=== PATIENT | female | born 1965 | race Caucasian/White ===

== ENCOUNTER 2016-11-11 17:44 | Emergency (ER) | payer OTHER ==
--- OUTSIDE RECORDS SUMMARY | 2016-11-11 18:31 | XMS REPORT | Continuity of Care Document ---
:1965 Author Organization [facility] ([facility]) Address [place] [address] Phone [phone] Care Team Providers Name Role Phone Provider, No-Primary Care Primary Care Provider Unavailable Source Comments This disclosure is being made pursuant to the Care Everywhere program, applicable federal and state laws, and may not contain all informaitonavailable regarding this patient.[facility] ([facility]) Active Allergies and Adverse Reactions No Active Allergies Current Medications Not on file Active Problems Not on file Social History Tobacco Use Types Packs/Day Years Used Date Never Assessed Last Filed Vital Signs Vital Sign Reading Time Taken Blood Pressure 149/83 09/29/2005 11:16 AM MANAGER SURGERY Pulse 80 09/29/2005 11:16 AM MANAGER SURGERY Temperature - - Respiratory Rate - - Height 1.655 m (5' 5.15") 09/29/2005 11:16 AM MANAGER SURGERY Weight 73.097 kg (161 lb 2.4 oz) 09/29/2005 11:16 AM MANAGER SURGERY Body Mass Index 26.69 09/29/2005 11:16 AM MANAGER SURGERY Oxygen Saturation - - Plan of Care Health Maintenance Due Date Last Done Comments Hepatitis B Vaccine (1 of 3 - Primary Series) 1965 Tdap Vaccine 1978 Lipid Disorder Screening 1985 MMR Vaccine 1985 Td Vaccine 1985 Cervical Cancer Screening 03/26/2004 03/26/2001 Mammogram 2007 Influenza Vaccine: Seasonal (#1) 03/07/2016 Results from Last 3 Months Not on file
[2016-11-11] MEDS ORDERED: KETOROLAC TROMETHAMINE 60 MG/2 ML VIAL IM ONE ×2 (18:33→18:54)
--- NOTE | 2016-11-11 19:05 | ERNOTE ---
Lower Extremity HPI - Narrative Date of Service: 11/11/16 - General Lower Extremities Pain: knee: right Time Seen by Provider: 11/11/16 18:20 Source: patient Exam Limitations: no limitations - Immun/Allergies/Home Medications Immunizations: IMMUNIZATION HX Immunizations Up to Date Yes History of Influenza Vaccine Yes Hx Pneumococcal Vaccination No Allergies/Adverse Reactions: Allergies Allergy/AdvReac Type Severity Reaction Status Date / Time hydrocodone bitartrate AdvReac Mild STOMACH Verified 03/25/16 10:00 [From Vicodin] UPSET Home Medications: HOME MEDICATIONS Acetaminophen [Pain Relief Extra Strength] 1,000 mg PO Q4H PRN 03/03/16 [Last Taken Unknown] Cyclobenzaprine HCl 5 mg PO TID PRN 03/03/16 [Last Taken Unknown] FLUoxetine HCL [Prozac] 20 mg PO HS 03/03/16 [Last Taken 12/06/15] oxyCODONE HCL/ACETAMINOPHEN [Percocet 5 MG/325 MG] 2 tab PO Q4H PRN #30 tablet 03/25/16 [Last Taken Unknown] oxyCODONE HCL/ACETAMINOPHEN [Percocet 5 MG/325 MG] 1 - 2 tab PO Q4H PRN #30 tablet 04/15/16 [Last Taken 04/29/16 20:00] Naproxen [Naprosyn] 500 mg PO BID PRN #20 tablet 04/29/16 [Last Taken Unknown] Gabapentin 300 mg PO QID #30 capsule 05/01/16 [Last Taken Unknown] Hydromorphone HCl [Dilaudid] 2 mg PO QID #30 tablet 05/01/16 [Last Taken Unknown ] - History of Present Illness Narrative: 51-year-old female presenting to the emergency room for right knee pain 3 days. Patient states that she was at work and loaded A Mateo and Dr. Latoya rivero her right knee started to hurt. Date (Duration): 11/11/16 Occurred: yesterday Location of Incident: work Method of Injury: Reports: unknown Modifying Factors - (Improves): Reports: immobilization Modifying Factors - (Worsens): Reports: movement Other Injuries: Reports: none Review of Systems - Review of Systems Constitutional: Present: no symptoms reported EYE: Present: no symptoms reported ENT: Present: no symptoms reported Respiratory: Present: no symptoms reported Cardiology: Present: no symptoms reported Gastrointestinal/Abdominal: Present: no symptoms reported Genitourinary: Present: no symptoms reported Musculoskeletal: Present: See HPI, joint pain, joint swelling Skin: Present: no symptoms reported Neurological: Present: no symptoms reported Endocrine: Present: no symptoms reported Hematologic/Lymphatic: Present: no symptoms reported Psych: Present: no symptoms reported All Other Systems: All systems neg except as marked - Patient's Past Medical History Patient History - Medical: Anemia, Anxiety, Depression, Migraines Patient History - Cardiac/Respiratory: No pertinent hx Patient History - Cancer: No Hx of Cancer Patient History - Surgical Procedures: D & C, Other Patient History - Other: None LMP (females 10-50): Menopausal - Family History Mother Family History - Medical: Diabetes Type 2, Depression Family History - Cardiac/Respiratory: Hypertension Father Family History - Medical: No pertinent hx Family History - Cardiac/Respiratory: Hypertension Grandfather-Maternal Family History - Medical: No pertinent hx Family History - Cardiac/Respiratory: No pertinent hx Sister Family History - Medical: Diabetes Type 2 Family History - Cardiac/Respiratory: Asthma - Social History Living Situations: home Abuse History: No History of abuse Psych History: Hx of Anxiety, Hx of Depression Smoking Status: Current every day smoker Have you smoked in the past 12 months: Yes Patient requests Smoking Cessation Consult: No Initiate information on Smoking Cessation: No Alcohol Use: none Drug Use: none - Immunizations Immunizations Up to Date: Yes Hx Pneumococcal Vaccination: No History of Influenza Vaccine: Yes Physical Exam - Physical Exam General Appearance: Present: wd/wn, alert, no apparent distress Eye Exam: Normal inspection: bilateral Ears, Nose, Throat: Present: normal ENT inspection Neck: Present: normal inspection Respiratory: Present: no respiratory distress Cardiovascular/Chest: Present: regular rate, rhythm Gastrointestinal/Abdominal: Present: normal bowel sounds, nontender Back Exam: Present: normal inspection Extremity Exam: Present: normal except -, joint swelling - to right knee Neurological Exam: Present: alert, oriented, normal mood/affect Skin Exam: Present: normal color Lymphatic Exam: Present: no adenopathy ED Progress - Vital Signs Patient's Vital Signs:: I have reviewed the patient's vital signs. Vital Signs: Vital Signs 11/11/16 18:07 Temperature 37.7 C H Pulse Rate 76 Respiratory 18 Rate Blood Pressure 153/95 O2 Sat by Pulse 95 Oximetry - X-Ray X-Ray #1 X-Ray: knee Interpretation: Reviewed by me X-ray Comments: Findings: No acute fracture or dislocation. Alignment is anatomic. Mineralization is normal. Mild tricompartmental degenerative changes, greatest at the medial and anterior compartments. No destructive osseous lesions. No large joint effusion. Soft tissues are unremarkable. Impression: No acute osseous findings. Additional findings and comments are as above. Electronically signed by Rogelio Mohamud D.O.. - Progress/Reassessment Chief Complaint: Lower Extremity Pain/ Injury Progress:: Improved Departure Clinical Impression: Knee pain, acute Qualifiers: Laterality: right Qualified Code(s): M25.561 - Pain in right knee - Departure Disposition: Home Follow Up Needed Condition: Stable Instructions: Knee Pain, Knee Sprain, [id number] Additional Instructions: Continue to go home and rest tonight. Take [id number] pain medicines as needed for pain. Follow-up with your primary care physician on Monday if pain persists. Return to the emergency room if pain is not able to be controlled by [id number] pain medication or new symptoms arise. Referrals: Alice Celis, FADI [Primary Care Provider] -
[2016-11-11 21:30] VITALS: BP 157/91
== END 2016-11-11 20:38 | disposition home or self-care (01) ==
LOC: ER 17:44
DX: M25.561 Pain in right knee (principal); F17.210 Nicotine dependence, cigarettes, uncomplicated

== ENCOUNTER 2016-11-25 20:36 | Emergency (ER) | payer OTHER ==
--- NOTE | 2016-11-25 21:42 | ERNOTE ---
Lower Extremity HPI - General Lower Extremities Pain: knee: right Time Seen by Provider: 11/25/16 21:28 Source: patient Exam Limitations: no limitations - Immun/Allergies/Home Medications Immunizations: IMMUNIZATION HX Immunizations Up to Date Yes History of Influenza Vaccine No Hx Pneumococcal Vaccination No Allergies/Adverse Reactions: Allergies Allergy/AdvReac Type Severity Reaction Status Date / Time hydrocodone bitartrate AdvReac Mild STOMACH Verified 11/25/16 20:49 [From Vicodin] UPSET Home Medications: HOME MEDICATIONS Acetaminophen [Pain Relief Extra Strength] 1,000 mg PO Q4H PRN 03/03/16 [Last Taken Unknown] Cyclobenzaprine HCl 5 mg PO TID PRN 03/03/16 [Last Taken Unknown] Meloxicam [Mobic] 15 mg PO DAILY 11/25/16 [Last Taken Unknown] - History of Present Illness Narrative: Pt was walking down a ramp and felt a 'POP'. Pt was seen in the ED for pain in this knee 2 days ago and x-rays showed only degenerative changes. Occurred: just prior to arrival Location of Incident: home Method of Injury: Reports: unknown Modifying Factors - (Improves): Reports: immobilization Modifying Factors - (Worsens): Reports: movement Associated Symptoms: Reports: unable to bear weight, popping sensation Other Injuries: Reports: none Prior Treament: Reports: recently seen, treated by physician Review of Systems - Review of Systems Constitutional: Absent: recent illness, fever EYE: Present: no symptoms reported ENT: Present: no symptoms reported Respiratory: Present: no symptoms reported Cardiology: Present: no symptoms reported Gastrointestinal/Abdominal: Present: no symptoms reported Genitourinary: Present: no symptoms reported Musculoskeletal: Present: joint pain - with recent injury of this same joint, joint swelling Skin: Absent: rash, change in color Neurological: Absent: numbness, tingling Endocrine: Present: no symptoms reported Hematologic/Lymphatic: Present: no symptoms reported Psych: Present: no symptoms reported - Patient's Past Medical History Patient History - Medical: Anemia, Anxiety, Depression, Migraines Patient History - Cardiac/Respiratory: No pertinent hx Patient History - Cancer: No Hx of Cancer Patient History - Surgical Procedures: D & C, Other Patient History - Other: None LMP (females 10-50): Menopausal - Family History Mother Family History - Medical: Diabetes Type 2, Depression Family History - Cardiac/Respiratory: Hypertension Father Family History - Medical: No pertinent hx Family History - Cardiac/Respiratory: Hypertension Grandfather-Maternal Family History - Medical: No pertinent hx Family History - Cardiac/Respiratory: No pertinent hx Sister Family History - Medical: Diabetes Type 2 Family History - Cardiac/Respiratory: Asthma - Social History Living Situations: home Abuse History: No History of abuse Psych History: Hx of Anxiety, Hx of Depression Smoking Status: Current every day smoker Alcohol Use: none Drug Use: none - Immunizations Immunizations Up to Date: Yes Hx Pneumococcal Vaccination: No History of Influenza Vaccine: No Physical Exam - Physical Exam General Appearance: Present: wd/wn, alert, mild distress Neck: Present: normal inspection Respiratory: Present: no respiratory distress Extremity Exam: Present: decreased range of motion - of right knee, increased pain with flexion past 120 degrees. No effusion noted, no crepitance noted. No evidence for meniscus tear but exam limited by pain. Neurological Exam: Present: alert, oriented, normal mood/affect Skin Exam: Present: normal color, warm/dry ED Progress - Vital Signs Vital Signs: Vital Signs 11/25/16 20:45 Temperature 37.0 C Pulse Rate 92 Respiratory 16 Rate Blood Pressure 144/85 O2 Sat by Pulse 98 Oximetry - Progress/Reassessment Chief Complaint: Lower Extremity Pain/ Injury Progress:: Unchanged Progress Note-Subjective: Discussed possible internal derangement such as a degenerative meniscus tear. Encouraged her to be careful with the joint and follow up with her PCP or orthopedics if not improving in 3- 5 days. Departure Clinical Impression: Knee pain, acute Qualifiers: Laterality: right Qualified Code(s): M25.561 - Pain in right knee - Departure Disposition: Home Follow Up Needed Condition: Good Instructions: Meniscus Tear, How to Use a Knee Brace Additional Instructions: See your regular doctor or make an appointment with Orthopedics. keep the brace on except for bathing. Referrals: Alice Celis FNP [Primary Care Provider] -
--- OUTSIDE RECORDS SUMMARY | 2016-11-25 21:54 | XMS REPORT | Continuity of Care Document ---
:1965 Author Organization [facility] ([facility]) Address [place] [address] Phone [phone] Care Team Providers Name Role Phone Provider, No-Primary Care Primary Care Provider Unavailable Source Comments This disclosure is being made pursuant to the Care Everywhere program, applicable federal and state laws, and may not contain all informaitonavailable regarding this patient.[facility] ([facility]) Active Allergies and Adverse Reactions No Active Allergies Current Medications Not on file Active Problems Not on file Social History Tobacco Use Types Packs/Day Years Used Date Never Assessed Last Filed Vital Signs Vital Sign Reading Time Taken Blood Pressure 149/83 09/29/2005 11:16 AM TOY STUFFER Pulse 80 09/29/2005 11:16 AM TOY STUFFER Temperature - - Respiratory Rate - - Height 1.655 m (5' 5.15") 09/29/2005 11:16 AM TOY STUFFER Weight 73.097 kg (161 lb 2.4 oz) 09/29/2005 11:16 AM TOY STUFFER Body Mass Index 26.69 09/29/2005 11:16 AM TOY STUFFER Oxygen Saturation - - Plan of Care [...]
[2016-11-26 00:15] VITALS: BP 115/75
== END 2016-11-25 23:18 | disposition home or self-care (01) ==
LOC: ER 20:36
DX: M25.561 Pain in right knee (principal); F17.200 Nicotine dependence, unspecified, uncomplicated

== ENCOUNTER 2016-12-30 09:11 | Day surgery (SDC) | payer OTHER ==
[~2016-12-30 09:11] MED LIST: ACETAMINOPHEN 500 MG TABLET PO PRN; HYDROmorphone HCL 2 MG/ML VIAL IV PRN; MAG HYDROX/ALUMINUM HYD/SIMETH 30 ML UDC PO PRN; MAGNESIUM HYDROXIDE 30 ML UDC PO PRN; ONDANSETRON HCL/PF 2 MG/ML VIAL IV PRN; PROMETHAZINE HCL 25 MG in DEXTROSE 5 % IN WATER 50 ML IV PRN; RINGERS SOLUTION,LACTATED 1,000 ML IV PRN; ZOLPIDEM TARTRATE 5 MG TABLET PO PRN; ceFAZolin SODIUM 1 GM VIAL IV PRN; diphenhydrAMINE HCL 50 MG/ML VIAL IV PRN; oxyCODONE HCL/ACETAMINOPHEN 1 TAB TABLET PO PRN
--- OUTSIDE RECORDS SUMMARY | 2016-12-30 09:14 | XMS REPORT | Continuity of Care Document ---
:1965 Author Organization [facility] ([facility]) Address [place] [address] Phone [phone] Care Team Providers Name Role Phone Provider, No-Primary Care Primary Care Provider Unavailable Source Comments This disclosure is being made pursuant to the Care Everywhere program, applicable federal and state laws, and may not contain all informaitonavailable regarding this patient.[facility] ([facility]) Active Allergies and Adverse Reactions No Active Allergies Current Medications Not on file Active Problems Not on file Social History Tobacco Use Types Packs/Day Years Used Date Never Assessed Last Filed Vital Signs Vital Sign Reading Time Taken Blood Pressure 149/83 09/29/2005 11:16 AM PRACTICAL NURSING FACULTY Pulse 80 09/29/2005 11:16 AM PRACTICAL NURSING FACULTY Temperature - - Respiratory Rate - - Height 1.655 m (5' 5.15") 09/29/2005 11:16 AM PRACTICAL NURSING FACULTY Weight 73.097 kg (161 lb 2.4 oz) 09/29/2005 11:16 AM PRACTICAL NURSING FACULTY Body Mass Index 26.69 09/29/2005 11:16 AM PRACTICAL NURSING FACULTY Oxygen Saturation - - Plan of Care [...]
[2016-12-30] MEDS ORDERED: RINGERS SOLUTION,LACTATED 1,000 ML IV ONE (09:57)
[2016-12-30] MEDS ORDERED: BUPIVACAINE HCL/EPINEPHRINE 10 ML VIAL IJ ONE (10:45)
[2016-12-30] MEDS: ROPIVACAINE HCL/PF 40 MG in NORMAL SALINE 16 ML IJ PRN ×2 (11:00→11:02)
--- NOTE | 2016-12-30 11:12 | OR ---
Operative Report - Dictated Report Narrative: Date: 12/30/2016 Physician: Erasmo Lewis M.D. Web Developer Programmer: Rogelio Anderson PA-C Preoperative diagnosis: Right Knee medial meniscus tear Postoperative diagnosis: Right Knee medial meniscus tear anterior medial patellofemoral plica Procedure: Right knee arthroscopy with partial medial meniscectomy, excision of anterior medial plica Anesthesia: MAC Plus local Complications: None Estimated blood loss: Minimal Tourniquet time: None Specimens: None Retained implants: None Drains: None Indications: Mrs. Gillespie Is a 51 year-old female who has been followed in my clinic with complaints of knee pain consistent with suspected medial joint pathology. Physical exam and diagnostic imaging were consistent with these complaints and concern for medial meniscus pathology. Conservative measures have failed including, but not limited to, passage of time, activity modification, medications, and injections. The risks, benefits, and alternatives were discussed in clinic. The risks being , bleeding, infection, blood clots, nerve, tendon, ligament, blood vessel injury, persistent pain, arthrosis, need for additional procedures, and persistent symptoms. Consent was obtained in the clinic. Procedure: After marking the correct extremity in the preoperative holding area, a timeout was performed in the operating room. IV antibiotics consisting of Ancef were administered prior to the procedure. A well-padded tourniquet was applied to the operative upper thigh. The leg was prepped and draped in a standard sterile fashion. 0.5% Marcaine with epinephrine was infused into the projected portal sites as well as the intra-articular space. A jorge incision was made for inferior lateral portal. A blunt trocar and cannula was introduced into the knee. The suprapatellar pouch revealed no pathology. The medial patella facet showed no arthrosis. The lateral patella facet showed no arthrosis. The trochlea showed no arthrosis. The medial gutter revealed a thickened anterior medial plica which abraded over the medial femoral condyle. The medial joint space was then entered utilizing a lateral post and valgus stress. A spinal needle was utilized for guidance into placement of an anterior medial portal. This was placed just superior to the medial meniscus ensuring that we could reach the posterior aspect of the medial joint space. A jorge incision was made in the site, and the probe was introduced to the knee. The medial joint space was examined, and the medial femoral condyle showed a small fissure but no loose chondral edges. The medial tibial plateau showedcan arthrosis. The medial meniscus had a complex tear involving approximately 25% depth over approximately 30% of the circumference involving the posterior one third. The root was intact. The notch was then examined, and the ACL was noted to be intact. The PCL was noted to be intact. The lateral joint space was then examined using a varus force in the figure 4 position. Lateral femoral condyle showed no arthrosis. Lateral tibial plateau showed no arthrosis. The lateral meniscus showed no tear. The lateral gutter showed no pathology. Having identified the surgical pathology, a series of biters and kan were utilized in order to debride the posterior one third of the medial meniscus to a depth of approximately 25%. The shaver was also utilized in order to resect and excise the anterior medial plica down to the joint capsule. Once it was felt that we adequately addressed the pathology, the knee was thoroughly irrigated. The fluid was evacuated ensuring that we have removed all meniscal, chondral, and any other loose bodies. A final evaluation of the joint showed no additional pathology. The fluid was then evacuated of the knee, and the trocar and camera were removed from the joint. The wounds were closed with interrupted nylon after placing 20 mL of 0.2% ropivacaine into the joint. Dressings consisting of Xeroform, 4 x 4, ABD, soft roll, and an Elliott were applied. All sponge, needle, blade, and instrument counts were correct prior to closing the wounds. The patient was awoken and transferred to the postanesthesia care unit in stable condition.
[2016-12-30 12:20] VITALS: BP 123/71
[2016-12-30] MEDS ORDERED: SENNOSIDES/DOCUSATE SODIUM 1 TAB TABLET PO SCH (21:00)
== END 2016-12-30 09:12 | disposition home or self-care (01) ==
LOC: AMB 09:11
PROVIDERS: ATTEND Orthopaedic Surgery
PROC: 0SBC4ZZ Excision of Right Knee Joint, Percutaneous Endoscopic Approach (ICD-10-PCS; principal; 2016-12-30 10:50)
DX: M23.203 Derangement of unspecified medial meniscus due to old tear or injury, right knee (principal); F17.200 Nicotine dependence, unspecified, uncomplicated; Z68.27 Body mass index [BMI] 27.0-27.9, adult